=== PATIENT | male | born 1990 | race Caucasian/White ===

== ENCOUNTER 2016-12-21 04:18 | Emergency (ER) | payer OTHER ==
--- NOTE | 2016-12-21 05:50 | REPUSA ---
CLINICAL HISTORY: Trauma. TECHNIQUE: Multiple axial images were obtained through the cervical spine. Images were also reconstru cted in coronal and sagittal planes. The study was performed without IV contrast. COMMENTS: There is no fracture or spondylolisthesis visualized. The paraspinal soft tissues are unremarkable. T here are no lytic or blastic lesions. Straightening of cervical lordosis is seen, suggesting muscular spasm. There is evidence of minimal m ultilevel disk disease, demonstrated by minimal osteophytosis and endplate sclerosis. No significant disk herniation is noted at any level. Canal and foramina remain patent. IMPRESSION: 1. No fracture or spondylolisthesis. 2. Straightening of cervical lordosis is seen, suggesting muscular spasm. 3. Minimal multilevel spondylosis. Thank you for your kind referral of this patient.
[2016-12-21] MEDS ORDERED: DERMABOND TOPICAL SKIN ADHESIVE As Ordered ONE (06:01)
--- NOTE | 2016-12-21 06:40 | EDDOCDS ---
Physician Documentation [facility] Name: Heriberto Wells Age: 26 yrs Sex: Male : 1990 Arrival Date: 12/21/2016 Time: 04:18 Bed 8 Private MD: Disposition: 12/21/16 06:11 Discharged to Home/Self Care. Impression: Alcohol abuse with intoxication, Abrasion of other part of head, Laceration without foreign body of unspecified part of head. - Condition is Stable. - Medication Reconciliation, Local Pharmacy Hours form. - Follow up: Lexus Mak [facility]; When: Call to arrange an appointment; Reason: Recheck today's complaints. - Problem is new. - Symptoms have improved. Historical: - Allergies: No known drug Allergies; - Home Meds: 1. none - PMHx: none; - PSHx: Wisom teeth extractions; - Social history: Smoking status: Patient uses tobacco products, light tobacco smoker. No barriers to communication noted, The patient speaks fluent Belizean, Speaks appropriately for age. - Family history: Not pertinent. - : The pt / caregiver states he / she is not on anticoagulants. Home medication list is obtained from the patient. - Exposure Risk Screening:: None identified. Vital Signs: 12/21 04:32 BP 136 / 93; Pulse 95; Resp 20; Temp 97.3(O); Pulse Ox 97% on R/A; Weight 83.91 kg / jmv 184.99 lbs (R); Height 6 ft. 2 in. (187.96 cm) (R); Pain 6/10; 06:36 BP 123 / 58; Pulse 89; Resp 18; Pulse Ox 100% on R/A; Pain 3/10; tm5 04:32 Body Mass Index 23.75 (83.91 kg, 187.96 cm) jmv Procedures: 06:09 Laceration repair:. cs11 Laceration: 06:09 Wound Repair of 1.0cm ( 0.4in ) full thickness laceration to neck and face. Irregularly cs11 shaped.. Distal neuro/vascular/tendon intact. Wound prep: Moderate cleansing with hibiclenz by provider. Skin closed with thin layer Dermabond using Running sutures. Patient tolerated well. MDM: 04:28 CT Head Without Contrast Ordered. EDMS 04:28 CT Spine,Cervical W/o Contrast Ordered. EDMS 06:03 Dermabond to bedside ordered. tm5 06:27 Financial registration complete. hs2 06:29 [facility] Payment Agreement was scanned into [employer] and attached to record. hs2 Signatures: Dispatcher [employer] EDMS Carisa Esteves, RN RN kmg1 Elton Eubanks, DO cs11 Teresa Kaur, Reg Reg hs2 Alysia Edmond RN RN tm5 The chart was reviewed and I authenticate all verbal orders and agree with the evaluation and treatment provided.Attachments: 06:29 [facility] Payment Agreement hs2 MTDD
--- NOTE | 2016-12-21 06:40 | EDDOCDS ---
Nurse's Notes [facility] Name: Heriberto Wells Age: 26 yrs Sex: Male : 1990 Arrival Date: 12/21/2016 Time: 04:18 Bed 8 Private MD: Diagnosis: Alcohol abuse with intoxication;Abrasion of other part of head;Laceration without foreign body of unspecified part of head Presentation: 12/21 04:27 Presenting complaint: Patient states: Was drinking and when leaving the bar fell off kmg1 the curb lading primarily on his face and head. Witnesses report +LOC. Also injured left wrist and skinned left knee. Mental Health Triage Level: Level 1- Pt displays no suicidal or homicidal ideations and does not appear to be a danger to self or others. Suicide/Homicide risk assessment- the patient denies having any suicidal and/or homicidal ideations and does not present with any other emotional, behavioral or mental health complaints. Status: The patient is an active duty public service representative. Transition of care: patient was not received from another setting of care. 04:27 Acuity: HERVE Level 3 km 04:27 Method Of Arrival: Walkin/Carried/Asstd km 06:38 Adult Sepsis Screening: The patient does not have new or worsening altered mentation. tm5 Patient's respiratory rate is less than 22. Systolic blood pressure is greater than 100. Patient has a qSOFA score of 0- Negative Sepsis Screen. Triage Assessment: 04:32 General: Appears in no apparent distress, comfortable, Behavior is cooperative. Pain: kmg1 Location: right church, right zygomatic area, right cheek, right mandible, dorsal aspect of left wrist and palmar aspect of left wrist Pain currently is 6 out of 10 on a pain scale. Pt Declines HIV testing. Musculoskeletal: Circulation, motion, and sensation intact Capillary refill < 3 seconds. Injury Description: Abrasion sustained to right church, right zygomatic area, right cheek, right mandible and right knee pt fell from standing Laceration sustained to right mandible. Historical: - Allergies: No known drug Allergies; - Home Meds: 1. none - PMHx: none; - PSHx: Wisom teeth extractions; - Social history: Smoking status: Patient uses tobacco products, light tobacco smoker. No barriers to communication noted, The patient speaks fluent Guyanese, Speaks appropriately for age. - Family history: Not pertinent. - : The pt / caregiver states he / she is not on anticoagulants. Home medication list is obtained from the patient. - Exposure Risk Screening:: None identified. Screenin:34 Screening information is obtained from the patient. Fall risk: At risk due to gait tm5 disturbance. Assistance ADL's: requires no assistance with activities of daily living. Abuse/DV Screen: The patient / caregiver reports he/she is: not in a situation that causes fear, pain or injury. Nutritional screening: No deficits noted. Advance Directives: There is no active DNR order. home support is adequate. Assessment: 04:37 General: Appears in no apparent distress, Behavior is appropriate for age, cooperative. tm5 Pain: Location: right temporal area, right zygomatic area and face Pain currently is 6 out of 10 on a pain scale. Quality of pain is described as throbbing. Neurological: Level of Consciousness is awake, alert, Oriented to person, place, time, Student Services Rep are equal bilaterally Moves all extremities. Full function Gait is steady, Speech is normal, Facial symmetry appears normal, Facial symmetry: tongue is midline, Pupils are PERRLA. Respiratory: No deficits noted. GI: No deficits noted. : No deficits noted. Derm: Skin is pink, warm & dry. Injury Description: Abrasion sustained to face is no active bleeding noted pt fell. 06:36 Reassessment: Patient appears in no apparent distress at this time. Patient states tm5 feeling better. Patient states symptoms have improved. Vital Signs: 04:32 BP 136 / 93; Pulse 95; Resp 20; Temp 97.3(O); Pulse Ox 97% on R/A; Weight 83.91 kg (R); jmv Height 6 ft. 2 in. (187.96 cm) (R); Pain 6/10; 06:36 BP 123 / 58; Pulse 89; Resp 18; Pulse Ox 100% on R/A; Pain 3/10; tm5 04:32 Body Mass Index 23.75 (83.91 kg, 187.96 cm) [facility] Vitals: 04:32 Log In Time: December 21, 2016 at 04:20. [facility] ED Course: 04:19 Patient visited by Teresa Kaur, Reg. hs2 04:19 Patient moved to Waiting hs2 04:23 Elton Eubanks DO is Attending Physician. cs11 04:23 Patient visited by Elton Eubanks DO. cs11 04:23 Patient moved to 8 sls1 04:31 Triage Initiated kmg1 04:33 Patient visited by Todd Bishop PCA. jmv 04:[address] Scan. Awaiting ED physician evaluation. tm5 04:37 The patient / caregiver is instructed regarding the plan of care and ED course. tm5 04:51 Patient visited by Alysia Edmond RN. tm5 04:[address] tm5 06:03 Patient visited by Alysia Edmond RN. tm5 06:06 CT Head Without Contrast Returned. EDMS 06:06 CT Spine,Cervical W/o Contrast Returned. EDMS 06:10 Lexus Mak [facility] is Referral Physician. cs11 06:29 [facility] Payment Agreement was scanned into [employer] and attached to record. hs2 06:36 Patient visited by Alysia Edmond RN. tm5 06:36 No IV's were initiated during this patient's visit. No procedures done that require tm5 assistance. Order Results: Radiology Order: CT Head Without Contrast Test: CT Head Without Contrast REASON FOR EXAMINATION: Trauma; ; CLINICAL HISTORY: Head trauma.; TECHNIQUE: Multiple axial brain CT scan sections were obtained from base to vertex without contrast a; dministration.; COMMENTS:; There is no evidence of skull fracture.; The study shows normal configuration of sella turcica. There are no intra or extra-axial collections.; There is no mass effect or midline shift. There is no evidence of hematoma formation. No hydrocephal; us is present. No abnormal calcifications are noted.; No significant abnormalities are seen either in the posterior fossa or supratentorial compartment.; The sinuses and mastoid air cells are patent.; IMPRESSION:; No evidence of acute intracranial pathology. No intracranial hemorrhage or skull fracture.; Thank you for your kind referral of this patient.; ; Radiology Order: CT Spine,Cervical W/o Contrast Test: CT Spine,Cervical W/o Contrast REASON FOR EXAMINATION: Trauma; ; CLINICAL HISTORY: Trauma.; TECHNIQUE: Multiple axial images were obtained through the cervical spine. Images were also reconstru; cted in coronal and sagittal planes. The study was performed without IV contrast.; COMMENTS:; There is no fracture or spondylolisthesis visualized. The paraspinal soft tissues are unremarkable. T; here are no lytic or blastic lesions.; Straightening of cervical lordosis is seen, suggesting muscular spasm. There is evidence of minimal m; ultilevel disk disease, demonstrated by minimal osteophytosis and endplate sclerosis.; No significant disk herniation is noted at any level. Canal and foramina remain patent.; IMPRESSION:; 1. No fracture or spondylolisthesis.; 2. Straightening of cervical lordosis is seen, suggesting muscular spasm.; 3. Minimal multilevel spondylosis.; Thank you for your kind referral of this patient.; ; Outcome: 06:11 Discharge ordered by Provider. cs11 06:36 Discharge Assessment: Patient awake, alert and oriented x 3. No cognitive and/or tm5 functional deficits noted. Patient verbalized understanding of disposition instructions. patient administered narcotics - no. The following High Risk Discharge criteria are identified: None. Discharged to home ambulatory, with friend. Condition: good Condition: stable Condition: improved. Discharge instructions given to patient, Instructed on discharge instructions, follow up and referral plans. Demonstrated understanding of instructions, Pt was receptive of discharge instructions/ teaching. CT Study completed. Property :Personal belongings accompany Pt. 06:38 Patient left the ED. tm5 Signatures: Dispatcher [employer] EDMS Carisa Esteves, RN RN kmg1 Lacey Martell RN RN sls1 Elton Eubanks DO DO cs11 Teresa Kaur, Reg Reg hs2 Todd Bishop, MOTOCROSS RACER MOTOCROSS RACER Alysia Vasquez RN RN tm5 MTDD
--- NOTE | 2016-12-23 07:39 | EDDOCDS ---
Nurse's Notes [facility] Name: Heriberto Wells Age: 26 yrs Sex: Male : 1990 Arrival Date: 12/21/2016 Time: 04:18 Bed 8 Private MD: Diagnosis: Alcohol abuse with intoxication;Abrasion of other part of head;Laceration without foreign body of unspecified part of head Presentation: 12/21 04:27 Presenting complaint: Patient states: Was drinking and when leaving the bar fell off kmg1 the curb lading primarily on his face and head. Witnesses report +LOC. Also injured left wrist and skinned left knee. Mental Health Triage Level: Level 1- Pt displays no suicidal or homicidal ideations and does not appear to be a danger to self or others. Suicide/Homicide risk assessment- the patient denies having any suicidal and/or homicidal ideations and does not present with any other emotional, behavioral or mental health complaints. Status: The patient is an active duty hvac residential service technician. Transition of care: patient was not received from another setting of care. 04:27 Acuity: HERVE Level 3 km 04:27 Method Of Arrival: Walkin/Carried/Asstd km 06:38 Adult Sepsis Screening: The patient does not have new or worsening altered mentation. tm5 Patient's respiratory rate is less than 22. Systolic blood pressure is greater than 100. Patient has a qSOFA score of 0- Negative Sepsis Screen. Triage Assessment: 04:32 General: Appears in no apparent distress, comfortable, Behavior is cooperative. Pain: kmg1 Location: right scientologist, right zygomatic area, right cheek, right mandible, dorsal aspect of left wrist and palmar aspect of left wrist Pain currently is 6 out of 10 on a pain scale. Pt Declines HIV testing. Musculoskeletal: Circulation, motion, and sensation intact Capillary refill < 3 seconds. Injury Description: Abrasion sustained to right scientologist, right zygomatic area, right cheek, right mandible and right knee pt fell from standing Laceration sustained to right mandible. Historical: - Allergies: No known drug Allergies; - Home Meds: 1. none - PMHx: none; - PSHx: Wisom teeth extractions; - Social history: Smoking status: Patient uses tobacco products, light tobacco smoker. No barriers to communication noted, The patient speaks fluent Ecuadorean, Speaks appropriately for age. - Family history: Not pertinent. - : The pt / caregiver states he / she is not on anticoagulants. Home medication list is obtained from the patient. - Exposure Risk Screening:: None identified. Screenin:34 Screening information is obtained from the patient. Fall risk: At risk due to gait tm5 disturbance. Assistance ADL's: requires no assistance with activities of daily living. Abuse/DV Screen: The patient / caregiver reports he/she is: not in a situation that causes fear, pain or injury. Nutritional screening: No deficits noted. Advance Directives: There is no active DNR order. home support is adequate. Assessment: 04:37 General: Appears in no apparent distress, Behavior is appropriate for age, cooperative. tm5 Pain: Location: right temporal area, right zygomatic area and face Pain currently is 6 out of 10 on a pain scale. Quality of pain is described as throbbing. Neurological: Level of Consciousness is awake, alert, Oriented to person, place, time, Client Service Coordinator are equal bilaterally Moves all extremities. Full function Gait is steady, Speech is normal, Facial symmetry appears normal, Facial symmetry: tongue is midline, Pupils are PERRLA. Respiratory: No deficits noted. GI: No deficits noted. : No deficits noted. Derm: Skin is pink, warm & dry. Injury Description: Abrasion sustained to face is no active bleeding noted pt fell. 06:36 Reassessment: Patient appears in no apparent distress at this time. Patient states tm5 feeling better. Patient states symptoms have improved. Vital Signs: 04:32 BP 136 / 93; Pulse 95; Resp 20; Temp 97.3(O); Pulse Ox 97% on R/A; Weight 83.91 kg (R); jmv Height 6 ft. 2 in. (187.96 cm) (R); Pain 6/10; 06:36 BP 123 / 58; Pulse 89; Resp 18; Pulse Ox 100% on R/A; Pain 3/10; tm5 04:32 Body Mass Index 23.75 (83.91 kg, 187.96 cm) [facility] Vitals: 04:32 Log In Time: December 21, 2016 at 04:20. [facility] [place] ED Course: 04:19 Patient visited by Teresa Kaur, Reg. hs2 04:19 Patient moved to Waiting hs2 04:23 Elton Eubanks DO is Attending Physician. cs11 04:23 Patient visited by Elton Eubanks DO. cs11 04:23 Patient moved to 8 sls1 04:31 Triage Initiated kmg1 04:33 Patient visited by Todd Bishop PCA. jmv 04:[address] Scan. Awaiting ED physician evaluation. tm5 04:37 The patient / caregiver is instructed regarding the plan of care and ED course. tm5 04:51 Patient visited by Alysia Edmond RN. tm5 04:[address] tm5 06:03 Patient visited by Alysia Edmond RN. tm5 06:06 CT Head Without Contrast Returned. EDMS 06:06 CT Spine,Cervical W/o Contrast Returned. EDMS 06:10 Lexus aM[facility] is Referral Physician. cs11 06:29 [facility] Payment Agreement was scanned into [employer] and attached to record. hs2 06:36 Patient visited by Alysia Edmond RN. tm5 06:36 No IV's were initiated during this patient's visit. No procedures done that require 5 assistance. 08:26 T-Sheet-- Draft Copy was scanned into [employer] and attached to record. [facility] Order Results: Radiology Order: CT Head Without Contrast Test: CT Head Without Contrast REASON FOR EXAMINATION: Trauma; ; CLINICAL HISTORY: Head trauma.; TECHNIQUE: Multiple axial brain CT scan sections were obtained from base to vertex without contrast a; dministration.; COMMENTS:; There is no evidence of skull fracture.; The study shows normal configuration of sella turcica. There are no intra or extra-axial collections.; There is no mass effect or midline shift. There is no evidence of hematoma formation. No hydrocephal; us is present. No abnormal calcifications are noted.; No significant abnormalities are seen either in the posterior fossa or supratentorial compartment.; The sinuses and mastoid air cells are patent.; IMPRESSION:; No evidence of acute intracranial pathology. No intracranial hemorrhage or skull fracture.; Thank you for your kind referral of this patient.; ; Radiology Order: CT Spine,Cervical W/o Contrast Test: CT Spine,Cervical W/o Contrast REASON FOR EXAMINATION: Trauma; ; CLINICAL HISTORY: Trauma.; TECHNIQUE: Multiple axial images were obtained through the cervical spine. Images were also reconstru; cted in coronal and sagittal planes. The study was performed without IV contrast.; COMMENTS:; There is no fracture or spondylolisthesis visualized. The paraspinal soft tissues are unremarkable. T; here are no lytic or blastic lesions.; Straightening of cervical lordosis is seen, suggesting muscular spasm. There is evidence of minimal m; ultilevel disk disease, demonstrated by minimal osteophytosis and endplate sclerosis.; No significant disk herniation is noted at any level. Canal and foramina remain patent.; IMPRESSION:; 1. No fracture or spondylolisthesis.; 2. Straightening of cervical lordosis is seen, suggesting muscular spasm.; 3. Minimal multilevel spondylosis.; Thank you for your kind referral of this patient.; ; Outcome: 06:11 Discharge ordered by Provider. cs11 06:36 Discharge Assessment: Patient awake, alert and oriented x 3. No cognitive and/or tm5 functional deficits noted. Patient verbalized understanding of disposition instructions. patient administered narcotics - no. The following High Risk Discharge criteria are identified: None. Discharged to home ambulatory, with friend. Condition: good Condition: stable Condition: improved. Discharge instructions given to patient, Instructed on discharge instructions, follow up and referral plans. Demonstrated understanding of instructions, Pt was receptive of discharge instructions/ teaching. CT Study completed. Property :Personal belongings accompany Pt. 06:38 Patient left the ED. tm5 Signatures: Dispatcher [employer] EDMS Carisa Esteves, RN RN kmg1 Lacey Martell RN RN sls1 Elton Eubanks DO DO cs11 Teresa Kaur, Reg Reg hs2 Hilda Gibbons Jose, KATIE DISTRICT SUPERVISOR Alysia Vasquez,RN RN tm5 Chart Complete MTDD
--- NOTE | 2016-12-23 07:39 | EDDOCDS ---
Physician Documentation [facility] Name: Heriberto Wells Age: 26 yrs Sex: Male : 1990 Arrival Date: 12/21/2016 Time: 04:18 Bed 8 Private MD: Disposition: 12/21/16 06:11 Discharged to Home/Self Care. Impression: Alcohol abuse with intoxication, Abrasion of other part of head, Laceration without foreign body of unspecified part of head. - Condition is Stable. - Medication Reconciliation, Local Pharmacy Hours form. - Follow up: Lexus Mak [facility]; When: Call to arrange an appointment; Reason: Recheck today's complaints. - Problem is new. - Symptoms have improved. Historical: - Allergies: No known drug Allergies; - Home Meds: 1. none - PMHx: none; - PSHx: Wisom teeth extractions; - Social history: Smoking status: Patient uses tobacco products, light tobacco smoker. No barriers to communication noted, The patient speaks fluent Mosotho, Speaks appropriately for age. - Family history: Not pertinent. - : The pt / caregiver states he / she is not on anticoagulants. Home medication list is obtained from the patient. - Exposure Risk Screening:: None identified. Vital Signs: 12/21 04:32 BP 136 / 93; Pulse 95; Resp 20; Temp 97.3(O); Pulse Ox 97% on R/A; Weight 83.91 kg / jmv 184.99 lbs (R); Height 6 ft. 2 in. (187.96 cm) (R); Pain 6/10; 06:36 BP 123 / 58; Pulse 89; Resp 18; Pulse Ox 100% on R/A; Pain 3/10; tm5 04:32 Body Mass Index 23.75 (83.91 kg, 187.96 cm) jmv Procedures: 06:09 Laceration repair:. cs11 Laceration: 06:09 Wound Repair of 1.0cm ( 0.4in ) full thickness laceration to neck and face. Irregularly cs11 shaped.. Distal neuro/vascular/tendon intact. Wound prep: Moderate cleansing with hibiclenz by provider. Skin closed with thin layer Dermabond using Running sutures. Patient tolerated well. MDM: 04:28 CT Head Without Contrast Ordered. EDMS 04:28 CT Spine,Cervical W/o Contrast Ordered. EDMS 06:03 Dermabond to bedside ordered. tm5 06:27 Financial registration complete. hs2 06:29 [facility] Payment Agreement was scanned into [employer] and attached to record. hs2 08:26 T-Sheet-- Draft Copy was scanned into [employer] and attached to record. [facility] Signatures: Dispatcher [employer] EDIN Carisa Esteves, RN RN kmg1 Elton Eubanks, DO cs11 Teresa Kaur, Reg Reg hs2 Hilda Gibbons Tonya, RN RN tm5 The chart was reviewed and I authenticate all verbal orders and agree with the evaluation and treatment provided.Attachments: 06:29 [facility] Payment Agreement hs2 08:26 T-Sheet-- Draft Copy [facility] Chart Complete MTDD
--- NOTE | 2016-12-23 07:39 | EDDOCDS ---
Physician Documentation [facility] Name: Heriberto Wells Age: 26 yrs Sex: Male : 1990 Arrival Date: 12/21/2016 Time: 04:18 Bed 8 Private MD: Disposition: 12/21/16 06:11 Discharged to Home/Self Care. Impression: Alcohol abuse with intoxication, Abrasion of other part of head, Laceration without foreign body of unspecified part of head. - Condition is Stable. - Medication Reconciliation, Local Pharmacy Hours form. - Follow up: Lexus Mak [facility]; When: Call to arrange an appointment; Reason: Recheck today's complaints. - Problem is new. - Symptoms have improved. Historical: - Allergies: No known drug Allergies; - Home Meds: 1. none - PMHx: none; - PSHx: Wisom teeth extractions; - Social history: Smoking status: Patient uses tobacco products, light tobacco smoker. No barriers to communication noted, The patient speaks fluent Maltese, Speaks appropriately for age. - Family history: Not pertinent. - : The pt / caregiver states he / she is not on anticoagulants. Home medication list is obtained from the patient. - Exposure Risk Screening:: None identified. Vital Signs: 12/21 04:32 BP 136 / 93; Pulse 95; Resp 20; Temp 97.3(O); Pulse Ox 97% on R/A; Weight 83.91 kg / jmv 184.99 lbs (R); Height 6 ft. 2 in. (187.96 cm) (R); Pain 6/10; 06:36 BP 123 / 58; Pulse 89; Resp 18; Pulse Ox 100% on R/A; Pain 3/10; tm5 04:32 Body Mass Index 23.75 (83.91 kg, 187.96 cm) jmv Procedures: 06:09 Laceration repair:. cs11 Laceration: 06:09 Wound Repair of 1.0cm ( 0.4in ) full thickness laceration to neck and face. Irregularly cs11 shaped.. Distal neuro/vascular/tendon intact. Wound prep: Moderate cleansing with hibiclenz by provider. Skin closed with thin layer Dermabond using Running sutures. Patient tolerated well. MDM: 04:28 CT Head Without Contrast Ordered. EDMS 04:28 CT Spine,Cervical W/o Contrast Ordered. EDMS 06:03 Dermabond to bedside ordered. tm5 06:27 Financial registration complete. hs2 06:29 [facility] Payment Agreement was scanned into [employer] and attached to record. hs2 08:26 T-Sheet-- Draft Copy was scanned into [employer] and attached to record. [facility] Signatures: Dispatcher [employer] EDAZ Carisa Esteves, RN RN [id number] Elton Eubanks, DO cs11 Teresa Kaur, Reg Reg hs2 Hilda Gibbons Tonya, RN RN tm5 The chart was reviewed and I authenticate all verbal orders and agree with the evaluation and treatment provided.Attachments: 06:29 [facility] Payment Agreement hs2 08:26 T-Sheet-- Draft Copy [facility] Chart Complete MTDD
== END 2016-12-21 06:38 | disposition home or self-care (01) ==
LOC: M ED 04:18
DX: F10.129 Alcohol abuse with intoxication, unspecified (principal); S01.81XA Laceration without foreign body of other part of head, initial encounter; W19.XXXA Unspecified fall, initial encounter; Y92.410 Unspecified street and highway as the place of occurrence of the external cause; Y93.89 Activity, other specified; Y99.8 Other external cause status; F17.200 Nicotine dependence, unspecified, uncomplicated

== ENCOUNTER 2021-09-04 10:49 | Emergency (ER) | payer OTHER ==
[~2021-09-04] VITALS: Ht 190.5 cm; Wt 84.1 kg
[2021-09-04 10:49] VITALS: BP 124/69
--- OUTSIDE RECORDS SUMMARY | 2021-09-04 10:54 | CCD ---
Author Author [facility] Organization [facility] Address Unknown Phone Unavailable Care Team Providers Care Park Attendant Name Role Phone XOCHITL LOVE MD Unavailable Unavailable XOCHITL LOVE MD Unavailable Unavailable XOCHITL LOVE MD Unavailable Unavailable XOCHITL LOVE MD Unavailable Unavailable XOCHITL LOVE MD Unavailable Unavailable XOCHITL LOVE MD Unavailable Unavailable XOCHITL LOVE MD Unavailable Unavailable XOCHITL LOVE MD Unavailable Unavailable XOCHITL LOVE MD Unavailable Unavailable XOCHITL LOVE MD Unavailable Unavailable XOCHITL LOVE MD Unavailable Unavailable XOCHITL LOVE MD Unavailable Unavailable XOCHITL LOVE MD Unavailable Unavailable XOCHITL LOVE MD Unavailable Unavailable XOCHITL LOVE MD Unavailable Unavailable Joesph HERNANDEZ MD Unavailable Unavailable Joesph HERNANDEZ MD Unavailable Unavailable Joesph HERNANDEZ MD Unavailable Unavailable Joesph HERNANDEZ MD Unavailable Unavailable Joesph HERNANDEZ MD Unavailable Unavailable Joesph HERNANDEZ MD Unavailable Unavailable Joesph HERNANDEZ MD Unavailable Unavailable Joesph HERNANDEZ MD Unavailable Unavailable Joesph HERNANDEZ MD Unavailable Unavailable Joesph HERNANDEZ MD Unavailable Unavailable Joesph HERNANDEZ MD Unavailable Unavailable Joesph HERNANDEZ MD Unavailable Unavailable Joesph HERNANDEZ MD Unavailable Unavailable Joesph HERNANDEZ MD Unavailable Unavailable Joesph HERNANDEZ MD Unavailable Unavailable Joesph HRENANDEZ MD Unavailable Unavailable Joesph HERNANDEZ MD Unavailable Unavailable Joesph HERNANDEZ MD Unavailable Unavailable Joesph HERNANDEZ MD Unavailable Unavailable Joesph HERNANDEZ MD Unavailable Unavailable Joesph HERNANDEZ MD Unavailable Unavailable Joesph HERNANDEZ MD Unavailable Unavailable Joesph HERNANDEZ MD Unavailable Unavailable Joesph HERANNDEZ MD Unavailable Unavailable Joesph HERNANDEZ MD Unavailable Unavailable Joesph HERNANDEZ MD Unavailable Unavailable Joesph HERNANDEZ MD Unavailable Unavailable Joesph HERNANDEZ MD Unavailable Unavailable Joesph HERNANDEZ MD Unavailable Unavailable Joesph HERNANDEZ MD Unavailable Unavailable Joesph HERNANDEZ MD Unavailable Unavailable Joesph HERNANDEZ MD Unavailable Unavailable Joesph HERNANDEZ MD Unavailable Unavailable Joesph HERNANDEZ MD Unavailable Unavailable Joesph HERNANDEZ MD Unavailable Unavailable Joesph HERNANDEZ MD Unavailable Unavailable Joesph HERNANDEZ MD Unavailable Unavailable Joesph HERNANDEZ MD Unavailable Unavailable Joesph HERNANDEZ MD Unavailable Unavailable Joesph HERNANDEZ MD Unavailable Unavailable Joesph HERNANDEZ MD Unavailable Unavailable Joesph HERNANDEZ MD Unavailable Unavailable Joesph HERNANDEZ MD Unavailable Unavailable Joesph HERNANDEZ MD Unavailable Unavailable Joesph HERNANDEZ MD Unavailable Unavailable Joesph HERNANDEZ MD Unavailable Unavailable Joesph HERNANDEZ MD Unavailable Unavailable Joesph HERNANDEZ MD Unavailable Unavailable Joesph HERNANDEZ MD Unavailable Unavailable Joesph HERNANDEZ MD Unavailable Unavailable Joesph HERNANDEZ MD Unavailable Unavailable Joesph HERNANDEZ MD Unavailable Unavailable Joesph HERNANDEZ MD Unavailable Unavailable Joesph HERNANDEZ MD Unavailable Unavailable Joesph HERNANDEZ MD Unavailable Unavailable Joesph HERNANDEZ MD Unavailable Unavailable Joesph HERNANDEZ MD Unavailable Unavailable Joesph HERNANDEZ MD Unavailable Unavailable Joesph HERNANDEZ MD Unavailable Unavailable Joesph HERNANDEZ MD Unavailable Unavailable Joesph HERNANDEZ MD Unavailable Unavailable Joesph HERNANDEZ MD Unavailable Unavailable Joesph HERNANDEZ MD Unavailable Unavailable Joesph HERNANDEZ MD Unavailable Unavailable Joesph HERNANDEZ MD Unavailable Unavailable Joesph HERNANDEZ MD Unavailable Unavailable Joesph HERNANDEZ MD Unavailable Unavailable Joesph HERNANDEZ MD Unavailable Unavailable Joesph HERNANDEZ MD Unavailable Unavailable Joesph HERNANDEZ MD Unavailable Unavailable Joesph HERNANDEZ MD Unavailable Unavailable Joesph HERNANDEZ MD Unavailable Unavailable Joesph HERNANDEZ MD Unavailable Unavailable Joesph HERNANDEZ MD Unavailable Unavailable Joesph HERNANDEZ MD Unavailable Unavailable Joesph HERNANDEZ MD Unavailable Unavailable Joesph HERNANDEZ MD Unavailable Unavailable Joesph HERNANDEZ MD Unavailable Unavailable Joesph HERNANDEZ MD Unavailable Unavailable Re-disclosure Warning The records that you are about to access may contain information from federally-assisted alcohol or drug abuse programs. If such information is present, then the following federally mandated warning applies: This information has been disclosed to you from records protected by federal confidentiality rules (42 CFR part 2). The federal rules prohibit you from making any further disclosure of this information unless further disclosure is expressly permitted by the written consent of the person to whom it pertains or as otherwise permitted by 42 CFR part 2. A general authorization for the release of medical or other information is NOT sufficient for this purpose. The Federal rules restrict any use of the information to criminally investigate or prosecute any alcohol or drug abuse patient.The records that you are about to access may contain highly sensitive health information, the redisclosure of which is protected by Article 27-F of the [facility] Public Health law. If you continue you may have access to information: Regarding HIV / AIDS; Provided by facilities licensed or operated by the [facility] Office of Mental Health; or Provided by the [facility] Office for People With Developmental Disabilities. If such information is present, then the following [facility] mandated warning applies: This information has been disclosed to you from confidential records which are protected by state law. State law prohibits you from making any further disclosure of this information without the specific written consent of the person to whom it pertains, or as otherwise permitted by law. Any unauthorized further disclosure in violation of state law may result in a fine or correction sentence or both. A general authorization for the release of medical or other information is NOT sufficient authorization for further disc losure. Allergies and Adverse Reactions Type Description Substance Reaction Status Data Source(s ) Propensity to adverse reactions NO KNOWN ALLERGIES NO KNOWN ALLERGIES [facility] Encounters Encounter Providers Location Date Indications Data Source(s ) Outpatient Attender: SCOTT HERNANDEZ MDReferrer: SCOTT LOVE MD [id number] 10/01/2020 12:00:00 AM EST [facility] Outpatient Referrer: SCOTT HERNANDEZ MD 10/01/2020 12:0 0:00 AM EST Displaced fracture of neck of fifth metacarpal bone, left hand, subsequent encounter for fracture with routine healing [facility] Displaced fracture of neck of fifth meta carpal bone, left hand, subsequent encounter for fracture with routine healing Outpatient Referrer: SCOTT HERNANDEZ MD 09/10/2020 12:0 0:00 AM EST Displaced fracture of neck of fifth metacarpal bone, left hand, initial encounter for closed fracture [facility] Displaced fracture of neck of fifth meta carpal bone, left hand, initial encounter for closed fracture Outpatient Attender: SCOTT HERNANDEZ MDReferrer: SCOTT LOVE MD [id number] 09/10/2020 12:00:00 AM [facility] Outpatient Attender: SCOTT HERNANDEZ MD 08/28/2020 12:00:00 A M [facility] Outpatient Attender: SCOTT HERNANDEZ MDReferrer: SCOTT LOVE MD [id number] 08/14/2020 12:00:00 AM EDT Displaced fracture of neck of fifth meta carpal bone, left hand, initial encounter for closed fracture [facility] Displaced fracture of neck of fifth meta carpal bone, left hand, initial encounter for closed fracture Outpatient Referrer: SCOTT HERNANDEZ MD 08/14/2020 12:0 0:00 AM EDT Unspecified injury of left wrist, hand and finger(s), initial encounter [facility] Unspecified injury of left wrist, hand a nd finger(s), initial encounter Medications No Information Insurance Providers Payer name Policy type / Coverage type Policy ID Covered constitution party ID Covered constitution party's relationship to dudley Policy [place] Plan Information U [id number] Self [id number] U [id number] Self [id number] ACT[employer]Y [id number] Problems, Conditions, and Diagnoses Code Display Name Description Problem Type Effective Dates Data Source(s) S62.337D Displaced fracture of neck o f fifth metacarpal bone, left hand, subsequent encounter for fracture with routine healing Displaced fracture of neck of fifth metacarpal bone, left hand, subsequent encounter for fracture with routine healing Diagnosis 08/14/2020 09:47:48 AM EDT [facility] S62.337A Displaced fracture of neck o f fifth metacarpal bone, left hand, initial encounter for closed fracture Displaced fracture of neck of fifth meta carpal bone, left hand, initial encounter for closed fracture Diagnosis 08/14/2020 09:47:48 AM EDT [facility] S69.92XA Unspecified injury of left w rist, hand and finger(s), initial encounter Unspecified injury of left wrist, hand and finger(s), initial encounter Diagnosis 08/14/2020 09:15:25 AM EDT [facility] Surgeries/Procedures No Information Results ID Date Data Source [id number] 10/01/2020 09:40:26 AM EST [facility] Name Value Range Interpretation Code Description Data Arabella rce(s) Supporting Document(s) Progress Note [facility] OVUAXz4yLrKESxTx32/EMKrqZNNau3AkXXklKFa7ZNtxIFIxI4NmVJU4bV3xHMT1USlLWtJiXkNtRxK6 lbm [file] AgICAgICAgICAgICAgICAgICAgICAgICAgICAgICAgICAgICAgICAgICAgICAgICAgICAgICAgDQogIC AgICAgICAgICAgICAgICAgICAgICAgICAgICAgICAg ICAgICAgICAgICAgICAgICAgICAgICAgICAgICAgICAgICAgICAgICAgICAgICAgICAgICAgICAgICAg ICAgICAgDQogICAgICAgICAgICAgICAgICAgICAgICAgICAgICAgICAgICAgICAgICAgICAgICAgICAg ICAgICAgICAgICAgICAgICAgICAgICAgICAgICAgIC AgICAgICAgICAgICAgICAgDQogICAgICAgICAgICAgICAgICAgICAgICAgICAgICAgICAgICAgICAgIC AgICAgICAgICAgICAgICAgICAgICAgICAgICAgICAgICAgICAgICAgICAgICAgICAgICAgICAgICAgDQ ogICAgICAgICAgICAgICAgICAgICAgICAgICAgICAg ICAgICAgICAgICAgICAgICAgICAgICAgICAgICAgICAgICAgICAgICAgICAgICAgICAgICAgICAgICAg ICAgICAgICAgDQogICAgICAgICAgICAgICAgICAgICAgICAgICAgICAgICAgICAgICAgICAgICAgICAg ICAgICAgICAgICAgICAgICAgICAgICAgICAgICAgIC AgICAgICAgICAgICAgICAgICAgDQogICAgICAgICAgICAgICAgICAgICAgICAgICAgICAgICAgICAgIC AgICAgICAgICAgICAgICAgICAgICAgICAgICAgICAgICAgICAgICAgICAgICAgICAgICAgICAgICAgIC AgDQogICAgICAgICAgICAgICAgICAgICAgICAgICAg ICAgICAgICAgICAgICAgICAgICAgICAgICAgICAgICAgICAgICAgICAgICAgICAgICAgICAgICAgICAg ICAgICAgICAgICAgDQogICAgICAgICAgICAgICAgICAgICAgICAgICAgICAgICAgICAgICAgICAgICAg ICAgICAgICAgICAgICAgICAgICAgICAgICAgICAgIC AgICAgICAgICAgICAgICAgICAgICAgDQogICAgICAgICAgICAgICAgICAgICAgICAgICAgICAgICAgIC AgICAgICAgICAgICAgICAgICAgICAgICAgICAgICAgICAgICAgICAgICAgICAgICAgICAgICAgICAgIC NtQNLxIGu2T0phWAFnEQSmBG1iPTa4Ci0+DQoNCmVu NWJ3xaNqxV9KFE0ib1TqGXycUKOvx1ZgNXz3RS3OLUQcOAjlHH0NELtqrv4GELIpXSAorVSHf9mjGgLv ZIH4ZKLkKhvxJJ6PSDNnV3dstcKtASAfDOTBKH6GFvMgM3MblB24NUAGQk9+CPmwicRpZuzOIsS0EKEq j5QrIGm6HG4RSDDnSounz5GvPmUcUPMDODkpGS0YSQ L5BEQtSZZqNi0DKRUzV450yjDyNT2DYc2VGxDzHS1ean7XWzXzUWEuNxyTMrp8TWcqBT5NjGCqQXxCcz 6qxeZivjGAb9VzyvDvwGMLxsneymOYQFmvklmkrTcoRQBzSQUxRLLdKw4wQJNjHUA7PwUuWRHLFM2AAX HkWYUkwONsMKZkVYCHXP0XBUzsPVI1SNQqbrDjbVEs ZLzzRI8YYXAoxdGsJJhnWNCFFZv+Xd4VCP2lr3ReXWdhYOCjYJ9bjm2JQUaJOlHzJ4U9dJZyG0T8RUkg Xi7ECCDdKBAdLMynDAMCTPgiHE7XJX1eslI6MB3WsWKyXKOmVZOvkDDqGPv3R69ztXIoATrtSA7QAHH+ Annie+Hb4MBIEeFRSwHWSmQzOgZFVIRsLkB5JvK3TSf1 BcU3CdWJ77eDrlnpGfXWvaHA4WFM8lRJBrJAWDNR4CwGEpgV7jqgVcCHRaZGCERnMpM07ftLFpCSRnUT A2TMUiXs7LBHHxQ6NjboFbbYtmtfLeXKHaUAUPRE0JVEbhtdDqqQYooVufLI44mJysRP8YGv1VRsElTN 0kgh1RsFXmRf9BASVpNh8BKMMtDKHuPLVsRDJ1IRSs EyKvOOlgKAMdMHHoHGZ6TILqTLCqRT7NTcXaTLYkOGsrRLCbMGCcZQNbae4FTAUmNVQyUTakGnIwDIYr IREgPEbnWKUqNHIkAMY9DTNuALCgDE7QSsLoKWNzGCM7HEVyYDHhQOOgkh6TRYThVIDvArTzEVVxWSQo KDWuBYtkOYEvYQVbKDo0HYKhCBAnUW2DEzSoTWSgUJ RrVtGxFCJmYYDerf5MENTjRLDsOrZ4AQYnQHVyOAMmULfwRRRnXAV6BSF7TZUvZOBhYM8JMkNxKXZoRG S5JPHkPADlGGVlwc8GEISnJKRnOEw0ZdBlNKRfTJEnKFbqGGYuVOV5WPGyTEIhPPQtXW5AAxZdROCuWQ N7HkeoBNZxPOOpfi9OKHIgOKAnIdQ8ZgEyBJFzVSPt RCanKXPhPEH2DOY9VGDgKOHfIM8SZpZjKLIhOFfmBdYqHYUdGYBbff3HKIFqRZXwLiC0XbHhXJXtNCUc WScoZEYqKFU2WTXzMHUuIAMmEX5DYgJiJQVyQYf9YiWjRZMmGXRrvt3DROHuUCGlTYLyRAYaJHYpQAWs YGh9dgHlhOJkNCs9BX4SH9YqypXiFsBPDn3An072MF PoJNBxOo6GB4quCk9cKNJhLXLKZg6FZJd0Hio8YcJlXvJjCUT2MQOnEXuhNoPfQvDwAVUcRyfhJYI+ID evAUH6JySmTwYcLum6PzWyETP6SPRqXPQuBEArSPZgKK9tSQYLFv1+CDditEYeqNrpWUHMEzG0CbH9YR qlFGVTXr6P ID Date Data Source [id number] 10/01/2020 09:27:00 AM [facility] XR HAND 3 OR MORE VIEWS [id number] RESUL TInterpreted by:RIKKI Carringtonlinical history: Left fifth metacarpal neck fractureViews: 4 views left handIndication: Check fracture left handFindings: Patient has an oblique fracture to the neck of the left fifth metacarpal which is in a slightly palmar flexed position. Advanced bone healing is present. Adjacent metacarpals appear uninjured. No acute bony trauma to the phalanges is appreciated.Impression: Isolated fracture left fifth metacarpal neck with slight angular deformity and advanced bone healingThis document has been electronically signed by Scott Hernandez MD on 10/01/2020 9:24 AM Name Value Range Interpretation Code Description Data Arabella rce(s) Supporting Document(s) ID Date Data Source [id number] 09/10/2020 11:56:41 AM [facility] XR HAND 3 OR MORE VIEWS [id number] RESUL TInterpreted by:RIKKI Carringtonlinical history: Left fifth metacarpal neck fractureViews: 4 views left handIndication: Check fracture left handFindings: Patient has an oblique fracture to the neck of the left fifth metacarpal which is in a slightly palmar flexed position. Moderate bone healing is present however the fracture line still is evident on all views. Adjacent metacarpals appear uninjured. No acute bony trauma to the phalanges is appreciated.Impression: Isolated fracture left fifth metacarpal neck with slight angular deformity and moderate bone healingThis document has been electronically signed by Scott Hernandez MD on 09/10/2020 11:54 AM Name Value Range Interpretation Code Description Data Arabella rce(s) Supporting Document(s) ID Date Data Source [id number] 09/10/2020 11:06:36 AM [facility] Name Value Range Interpretation Code Description Data Arabella rce(s) Supporting Document(s) Progress Note [facility] MKNEWv5xMoTNDeWd37/XNCbmJIJgf6MbZOvxHZk0TEjoHKTwB8CqBYC8yR8zUPN3HPvKWzPhTpIbBET3 lbm [file] ICAgICAgICAgICAgICAgICAgICAgICAgICAgICAgICAgICAgICAgICAgICAgICAgICAgICAgICAgICAg ICAgICAgICAgICAgICAgICAgICANCiAgICAgICAgICAgICAgICAgICAgICAgICAgICAgICAgICAgICAg ICAgICAgICAgICAgICAgICAgICAgICAgICAgICAgIC AgICAgICAgICAgICAgICAgICAgICAgICAgICAgICANCiAgICAgICAgICAgICAgICAgICAgICAgICAgIC AgICAgICAgICAgICAgICAgICAgICAgICAgICAgICAgICAgICAgICAgICAgICAgICAgICAgICAgICAgIC AgICAgICAgICAgICANCiAgICAgICAgICAgICAgICAg ICAgICAgICAgICAgICAgICAgICAgICAgICAgICAgICAgICAgICAgICAgICAgICAgICAgICAgICAgICAg ICAgICAgICAgICAgICAgICAgICAgICANCiAgICAgICAgICAgICAgICAgICAgICAgICAgICAgICAgICAg ICAgICAgICAgICAgICAgICAgICAgICAgICAgICAgIC AgICAgICAgICAgICAgICAgICAgICAgICAgICAgICAgICANCiAgICAgICAgICAgICAgICAgICAgICAgIC AgICAgICAgICAgICAgICAgICAgICAgICAgICAgICAgICAgICAgICAgICAgICAgICAgICAgICAgICAgIC AgICAgICAgICAgICAgICANCiAgICAgICAgICAgICAg ICAgICAgICAgICAgICAgICAgICAgICAgICAgICAgICAgICAgICAgICAgICAgICAgICAgICAgICAgICAg ICAgICAgICAgICAgICAgICAgICAgICAgICANCiAgICAgICAgICAgICAgICAgICAgICAgICAgICAgICAg ICAgICAgICAgICAgICAgICAgICAgICAgICAgICAgIC AgICAgICAgICAgICAgICAgICAgICAgICAgICAgICAgICAgICANCiAgICAgICAgICAgICAgICAgICAgIC AgICAgICAgICAgICAgICAgICAgICAgICAgICAgICAgICAgICAgICAgICAgICAgICAgICAgICAgICAgIC AgICAgICAgICAgICAgICAgICANCiAgICAgICAgICAg ICAgICAgICAgICAgICAgICAgICAgICAgICAgICAgICAgICAgICAgICAgICAgICAgICAgICAgICAgICAg ICAgICAgICAgICAgICAgICAgICAgICAgICAgICANCjw/sCNlL9pqcOCorjA2W4kzVe6FNn8VVN4ow4Hr FUErPYwvkxCdCysKQoDsZXIwMwiUBme1BSpuDR7SoX HlY9UyK6McDTbcGL3PRTAuZUNilOStHQPtVLZeItP4UETpEHmjUS5NySCvWEicQYTdWRNmWE5ZCTCzY3 48vlNdEE0QCo1YQwFiMG7rba0JMVooZGLmGdrPFpl4ITkhCK1AxTZosRSyLSGySWVWVsQwA4kax4NvOc EdNEAWGYtkWV0Ni2HpyNXvJQe+Bt6CSH3za8JpKFok KDRsNO7fjo1FEJdBAjJaD5TjoOqaDOAht3hrXDTdZG6nyALkBEO4ZZTujFRxBHtdZYMhjGE0ZJHMEIIl kUTkUN5nHf4sCTPfRGTzRmEaUMRUBG0YKEBqWRWihFHrTYCrQADQMF5XCXdbIOS5MRMnlfXqsKMrFZco YI3UIOSidyGnSHtyNSMAVNk+Qi3WQA8ns0RbGMhwIR BuPG5dss2TXFfAKmZiB5J3cGMbW8U3XPhxYa8LGTIvCENgDWvgECJYJYsrKQ3VVM3hmkN5DD0SgNXeBF YxNRDuyBOpPQa0J72qcNXmODjlQC7IBVK+Annie+Zn7RWTRwIRDePQZjKtPuUQLVWiKwR8RnX5MPx3KjT1 HdBC80hSouzqKbGDrfZP9FMK8gOZDaSPHTLE5TwSWp nF2xkiScMRWjRAYHPmKfZ39fdWEkREPkJUY6ATWcDl7AEQSmW2BgypZfnHvcnxIyMCLlRIRDKI5GBCjy lpRvfGVbeOhgNQ94xNjeUZ0DPy5VOnMpZX1tcr3DqSCyMg2IFEOoWp8GMBQxBWTtPWRzOHD5HSYtJdRj OGcwMVTnPAIlYCK0BIFnZUNqJY7MXaKuBYMtRGxgHB DlUAYbSUSwbk9XZSHzBZNkDTifUQGbNGCiCUHhREwjAQCxUARgKSR2QSSnUTBlWK7RDcSfAFUxIEKxKc dhGYUdGVQxkt2ZKTOhPAFkQjJeAYXrZYTgPRBpCWwfGAUqFSZxGZlbFOJcURIjRP7VEzEaAMBhXQAyWE VbZRAyMZFttu1QSMNpRAKeElS5BpNqUTGjJTJkQYuh CRYuBBR9RKV3XTByNVHfKL1VEiJkGUIbOCL9DnPcJAKhLVYebu1DFPKtEQFcINygQyVoPPZtEJZcHYff GMUbILZ8HfE0KUDwVOFiNX3QVoUjCXBqEGD5NGNjTPEoJRFrfk9RQNRnMYJoZhj1TkRsXOElITJfLSkq FVRgZRJ5UOVaBTVyXECfHC0DVcQpNASrLLalBgevZE YwKRUpag0FEIGjBBNcThL6KRQqMWNhCGEmVUevXVBlUDS1JOJ9CEThSPTyEK8RCuYhGMBpIGxeDIbvFQ EkTORvgr4EQQXvIWGxAZJlODUqIUHbCRJkTXy2hkIcbSOzYHo2BH4RT7OxevLnDxAHWm3Wy937UBJxKZ XuCi1TE2tsOk3sNRCfWLVUHx1YTJr9RJBdQDQoEux9 TTO5UDYmCgOhIAK5SFXeDgI6UVQ6SYF+FWf1Q6YjGMViMVo8AGB1HmPuHtW8MRWiCPR3BEXyHQLtMr0y XSANCj4+YHyulZSlgIqiBGQETpU1QQxaPTnsLCGIUg2O ID Date Data Source [id number] 08/14/2020 09:51:35 AM EDT [facility] XR HAND 3 OR MORE VIEWS [id number] RESUL TInterpreted by:RIKKI Carringtonlinical history: Left fifth metacarpal neck fractureViews: 4 views left handIndication: Check fracture left handFindings: Patient has an oblique fracture to the neck of the left fifth metacarpal which is in a slightly palmar flexed position. Early bone healing is present however the fracture line still is evident on all views. Adjacent metacarpals appear uninjured. No acute bony trauma to the phalanges is appreciated.Impression: Isolated fracture left fifth metacarpal neck with slight angular deformity and early bone healingThis document has been electronically signed by Scott Hernandez MD on 08/14/2020 9:49 AM Name Value Range Interpretation Code Description Data Arabella rce(s) Supporting Document(s) ID Date Data Source [id number] 08/14/2020 09:48:26 AM EDT [facility] Name Value Range Interpretation Code Description Data Arabella rce(s) Supporting Document(s) Progress Note [facility] IAYNAt9cCfBFStGa37/OGNlbGQWwp9IlJHmtLTj8MRyfKJRxO5EaDCT5uQ7vDIM9GLjBGkYkEtPhWSDl m [file] R9TlVfTExgMghhMQFqZKM1BAYhGnSzWtQoOS5JYr3DMcZ2JQN8iOSpRx4PUfXyOnOXXfRmFW3QTKf= Procedure Social History Code Duration Value Status Description Data Source(s ) Alcohol intake 10/01/2020 12:00:00 AM EST Current drinker of al cohol (finding) completed Current drinker of alcohol (finding) [facility] Tobacco use and exposure 10/01/2020 12:00:00 AM EST Never used co mpleted Never used [facility] Smoking 10/01/2020 12:00:00 AM EST Current every day smoker co mpleted Current every day smoker [facility] Alcohol intake 09/10/2020 12:00:00 AM EST Current drinker of al cohol (finding) completed Current drinker of alcohol (finding) [facility] Alcohol intake 08/14/2020 12:00:00 AM EDT Current drinker of al cohol (finding) completed Current drinker of alcohol (finding) [facility] Vital Signs ID Date Data Source [id number] 08/20/2020 02:31:15 PM EDT [facility] Name Value Range Interpretation Code Description Data Source(s) WEIGHT RECORDED [address] [facility] Body height Measured 75 in 75 in [facility]
--- OUTSIDE RECORDS SUMMARY | 2021-09-04 13:50 | CCD ---
Author Author [facility] Organization [facility] Address Unknown Phone Unavailable Care Team Providers Care Apple Packing Header Name Role Phone XOCHITL LOVE MD Unavailable [...] Unavailable Unavailable Joesph HERNANDEZ MD Unavailable Unavailable oJesph HERNANDEZ MD Unavailable Unavailable Joesph HERNANDEZ MD [...] is protected by Article 27-F of the [facility] Public Health law. If you continue you may have access to information: Regarding HIV / AIDS; Provided by facilities licensed or operated by the [facility] Office of Mental Health; or Provided by the [facility] Office for People With Developmental Disabilities. If such information is present, then the following [facility] mandated warning applies: This information has been [...] law may result in a fine or senior living sentence or both. A general authorization for the release of medical or other information is NOT sufficient authorization for further disc losure. Allergies and Adverse Reactions Type Description Substance Reaction Status Data Source(s ) Propensity to adverse reactions NO KNOWN ALLERGIES NO KNOWN ALLERGIES [facility] Encounters Encounter Providers Location Date Indications Data Source(s ) Outpatient Attender: SCOTT HERNANDEZ MDReferrer: SCOTT LOVE MD [id number] 10/01/2020 12:00:00 AM EST [facility] Outpatient Referrer: SCOTT HERNANDEZ MD 10/01/2020 12:0 0:00 AM EST Displaced fracture of neck of fifth metacarpal bone, left hand, subsequent encounter for fracture with routine healing [facility] Displaced fracture of neck of fifth meta carpal bone, left hand, subsequent encounter for fracture with routine healing Outpatient Referrer: SCOTT HERNANDEZ MD 09/10/2020 12:0 0:00 AM EST Displaced fracture of neck of fifth metacarpal bone, left hand, initial encounter for closed fracture [facility] Displaced fracture of neck of fifth meta carpal bone, left hand, initial encounter for closed fracture Outpatient Attender: SCOTT HERNANDEZ MDReferrer: SCOTT LOVE MD [id number] 09/10/2020 12:00:00 AM [facility] Outpatient Attender: SCOTT HERNANDEZ MD 08/28/2020 12:00:00 A M [facility] Outpatient Attender: SCOTT HERNANDEZ MDReferrer: SCOTT LOVE MD [id number] 08/14/2020 12:00:00 AM EDT Displaced fracture of neck of fifth meta carpal bone, left hand, initial encounter for closed fracture [facility] Displaced fracture of neck of fifth meta carpal bone, left hand, initial encounter for closed fracture Outpatient Referrer: SCOTT HERNANDEZ MD 08/14/2020 12:0 0:00 AM EDT Unspecified injury of left wrist, hand and finger(s), initial encounter [facility] Unspecified injury of left wrist, hand a nd finger(s), initial encounter Medications No Information Insurance Providers Payer name Policy type / Coverage type Policy ID Covered green party ID Covered green party's relationship to dudley Policy [place] Plan Information U [id number] Self [id number] U [id number] Self [id number] ACTIVE DUTY [id number] Problems, Conditions, and Diagnoses Code Display Name Description Problem Type Effective Dates Data Source(s) S62.337D Displaced fracture of neck o f fifth metacarpal bone, left hand, subsequent encounter for fracture with routine healing Displaced fracture of neck of fifth metacarpal bone, left hand, subsequent encounter for fracture with routine healing Diagnosis 08/14/2020 09:47:48 AM EDT [facility] S62.337A Displaced fracture of neck o f fifth metacarpal bone, left hand, initial encounter for closed fracture Displaced fracture of neck of fifth meta carpal bone, left hand, initial encounter for closed fracture Diagnosis 08/14/2020 09:47:48 AM EDT [facility] S69.92XA Unspecified injury of left w rist, hand and finger(s), initial encounter Unspecified injury of left wrist, hand and finger(s), initial encounter Diagnosis 08/14/2020 09:15:25 AM EDT [facility] Surgeries/Procedures No Information Results ID Date Data Source [id number] 10/01/2020 09:40:26 AM EST [facility] Name Value Range Interpretation Code Description Data Arabella rce(s) Supporting Document(s) Progress Note [facility] TIDTEe2aAtTVPeUl48/HRXzgTBCtz2AgYIkmNKd1BWtaUCPiA2WmTUR7eM7gYGC8BRuCRzQaPeQiIgN5 lbm [file] AgICAgICAgICAgICAgICAgICAgICAgICAgICAgICAgICAgICAgICAgICAgICAgICAgICAgICAgDQogIC AgICAgICAgICAgICAgICAgICAgICAgICAgICAgICAg ICAgICAgICAgICAgICAgICAgICAgICAgICAgICAgICAgICAgICAgICAgICAgICAgICAgICAgICAgICAg ICAgICAgDQogICAgICAgICAgICAgICAgICAgICAgICAgICAgICAgICAgICAgICAgICAgICAgICAgICAg ICAgICAgICAgICAgICAgICAgICAgICAgICAgICAgIC AgICAgICAgICAgICAgICAgDQogICAgICAgICAgICAgICAgICAgICAgICAgICAgICAgICAgICAgICAgIC AgICAgICAgICAgICAgICAgICAgICAgICAgICAgICAgICAgICAgICAgICAgICAgICAgICAgICAgICAgDQ ogICAgICAgICAgICAgICAgICAgICAgICAgICAgICAg ICAgICAgICAgICAgICAgICAgICAgICAgICAgICAgICAgICAgICAgICAgICAgICAgICAgICAgICAgICAg ICAgICAgICAgDQogICAgICAgICAgICAgICAgICAgICAgICAgICAgICAgICAgICAgICAgICAgICAgICAg ICAgICAgICAgICAgICAgICAgICAgICAgICAgICAgIC AgICAgICAgICAgICAgICAgICAgDQogICAgICAgICAgICAgICAgICAgICAgICAgICAgICAgICAgICAgIC AgICAgICAgICAgICAgICAgICAgICAgICAgICAgICAgICAgICAgICAgICAgICAgICAgICAgICAgICAgIC AgDQogICAgICAgICAgICAgICAgICAgICAgICAgICAg ICAgICAgICAgICAgICAgICAgICAgICAgICAgICAgICAgICAgICAgICAgICAgICAgICAgICAgICAgICAg ICAgICAgICAgICAgDQogICAgICAgICAgICAgICAgICAgICAgICAgICAgICAgICAgICAgICAgICAgICAg ICAgICAgICAgICAgICAgICAgICAgICAgICAgICAgIC AgICAgICAgICAgICAgICAgICAgICAgDQogICAgICAgICAgICAgICAgICAgICAgICAgICAgICAgICAgIC AgICAgICAgICAgICAgICAgICAgICAgICAgICAgICAgICAgICAgICAgICAgICAgICAgICAgICAgICAgIC KnKNQwMIe9F2yqFNNmEAMdGR1iGQi3Oz3+DQoNCmVu HWX0eiHtxC7FIM6ov6RlABmnCCNza8WiZVz8MI5RQNPfYRcbQR6BKCydwi0AKBNdRDRxwEIQk2gbHvAg WHU8IMWlOcsbXK5SWBFhY0cmtsJkTMMnNYNTHD0HMtDhG3OwpQ04YCWGMx3+FXbrxdEcKqcXTnD3EKKq m1KfOEp0CN9SSQTpAxuic2LzTgVrUWQAFTutKK8FBL F9UELzWVKtLw2KOPVvE925cyGxWT3YTl0IIaZnSR3foi9YSdIuMFVmMakIYki4KVqbSJ9EcRDgQKdQsa 6riuBskyHBc0RzgnGczHNWovakppDIBAozhgvvtRddBOZeJNEjZSUsLf7jTXDnRGL7ZcAlNVASHA1XXC AxNQSzcALuXYVgUXVBCG2JGLfnOWE7CJFnmoNhsYXd IIvrZF4LWMJkniDfHIbfYRYKMOh+Vv4BNU5ni5QfXWybHZVdVL2bws2LJUsMZdXjT4S7dNUdG4V4HJai Vk9VHHSdSCFxNLrfGHZTEIliQY0ATY9lnmV5KE7SiUNmTCGuAKRonCZmQQq6O14drSKgLKboPX2BWMB+ Annie+Ry8RRPRvJYXmVORuVzMvQJBDWsYqQ0OyU9TQh5 CbN3BuGN88pVaesmPkFEeqUO6TSP5bUFJmZNGJQT2HlSQrhT0hddNkKABqKRYUItHuM36uxZMiQPJhLM F4MPEpJf8UGOPqZ7DtefDgzNbjtjFvLQAsJMJWFP8TUKcifjFlfMLoqKtzFO59lDwxQD2YJl3SPkMxGV 6dmh4QjUXjYu9WFYTkKv7BAORoZHRoKEVwRDL4GAGw WjLcVPmtVNAjHKNuQIE4OVEdGLGyOI7HCaPdUQDtQSqtRJSuPOUzMPNexb1URRMcNJZiRBxjXyDhMLVf FZOqDLgzVFTlGQGkJBQ1JWCtLVHtDV4RCmSrORLuAYJ9GRRvPZLuGAHvlo4NKCDbJMWhJyRiYUQiTKGa BZGbWBxwYFAiOTVrIXz6YLJlIBPpTX0RSmGyVIGuYC JmDwEcAFCgABZkrs1XEZJqPZAbWjD9KIRtWQAuIWMsEBulOZXwYYN6HMV3JODpVMDoWT9FEhPcSTDfSW L5MTDzKSSaTLWqzi5XNDKySBWuKKi8CyKyCLZaYEIzGPhxRQLmIWT9XBDhZVRrZSMjHU7QUoJxYOIdRF I2VnmkOQInCIAgai9JRDRjPEIhBpJ9OaBkVSWxOUVj PDvkVSYfIDC2ADY1JXMsUGKvYD1WJnKbKLScTTbwGuJtTEVpIEIupd6AGJPjQLWfXqQ0ChPhIIMcNUAz QUpuKGLzOHJ4XBRkGEWxZGLiYF5HNyKbXGGnHZu3RdVoDSXfXCJtfb4HDXOoZXKtUBXjYPDzIKMuVEPr OQb8ejBpfIDzHGd6GH7MZ4PhmqLjNkDMIp8Uf583GF XwBURxLo5SO7gnVr9mOAIeASKVMn0JGYq3Fao7EdIvXmHwUML8ISXhIVylXsIiTmFqOAXxRcfdAJG+ID jwGLC7RvOjWhHdAnz9GuLmZFX2LQUrVCDmJTDhVAJhCK1cQXTSSw8+VVjxgOZsxRpoUOJKQlL3DmY6AD waMWNHEp4E ID Date Data Source [id number] 10/01/2020 09:27:00 AM [facility] XR HAND 3 OR MORE VIEWS [id number] RESUL TInterpreted by:RIKKI Carringtonlinical history: Left fifth [...] rce(s) Supporting Document(s) ID Date Data Source [id number] 09/10/2020 11:56:41 AM [facility] XR HAND 3 OR MORE VIEWS [id number] RESUL TInterpreted by:RIKKI Carringtonlinical history: Left fifth [...] rce(s) Supporting Document(s) ID Date Data Source [id number] 09/10/2020 11:06:36 AM [facility] Name Value Range Interpretation Code Description Data Arabella rce(s) Supporting Document(s) Progress Note [facility] VRCVBr0zXiMDKcAe65/HQBteSHRin7QpBDxeEIv0CCwvSLOxR8FeAEB8eF9iWNQ8IAgZAfVoHoKbOWQ8 lbm [file] ICAgICAgICAgICAgICAgICAgICAgICAgICAgICAgICAgICAgICAgICAgICAgICAgICAgICAgICAgICAg ICAgICAgICAgICAgICAgICAgICANCiAgICAgICAgICAgICAgICAgICAgICAgICAgICAgICAgICAgICAg ICAgICAgICAgICAgICAgICAgICAgICAgICAgICAgIC AgICAgICAgICAgICAgICAgICAgICAgICAgICAgICANCiAgICAgICAgICAgICAgICAgICAgICAgICAgIC AgICAgICAgICAgICAgICAgICAgICAgICAgICAgICAgICAgICAgICAgICAgICAgICAgICAgICAgICAgIC AgICAgICAgICAgICANCiAgICAgICAgICAgICAgICAg ICAgICAgICAgICAgICAgICAgICAgICAgICAgICAgICAgICAgICAgICAgICAgICAgICAgICAgICAgICAg ICAgICAgICAgICAgICAgICAgICAgICANCiAgICAgICAgICAgICAgICAgICAgICAgICAgICAgICAgICAg ICAgICAgICAgICAgICAgICAgICAgICAgICAgICAgIC AgICAgICAgICAgICAgICAgICAgICAgICAgICAgICAgICANCiAgICAgICAgICAgICAgICAgICAgICAgIC AgICAgICAgICAgICAgICAgICAgICAgICAgICAgICAgICAgICAgICAgICAgICAgICAgICAgICAgICAgIC AgICAgICAgICAgICAgICANCiAgICAgICAgICAgICAg ICAgICAgICAgICAgICAgICAgICAgICAgICAgICAgICAgICAgICAgICAgICAgICAgICAgICAgICAgICAg ICAgICAgICAgICAgICAgICAgICAgICAgICANCiAgICAgICAgICAgICAgICAgICAgICAgICAgICAgICAg ICAgICAgICAgICAgICAgICAgICAgICAgICAgICAgIC AgICAgICAgICAgICAgICAgICAgICAgICAgICAgICAgICAgICANCiAgICAgICAgICAgICAgICAgICAgIC AgICAgICAgICAgICAgICAgICAgICAgICAgICAgICAgICAgICAgICAgICAgICAgICAgICAgICAgICAgIC AgICAgICAgICAgICAgICAgICANCiAgICAgICAgICAg ICAgICAgICAgICAgICAgICAgICAgICAgICAgICAgICAgICAgICAgICAgICAgICAgICAgICAgICAgICAg ICAgICAgICAgICAgICAgICAgICAgICAgICAgICANCjw/aRRfV7moyULwesV8W5noGa2LEh5REX3ff4Vs ZKPvJKchyoDeSgvISmZkIEQxIiyMIxl7WLpoDH6HmJ DhD6IeC0SqQIfoZH2EILMaKNOyeEWiXBCnPJRpGjE6RRWoYMhpJZ4IoRXyAXjmCYUbGNWoOB5ISOUiD3 80foEkQX1GUm8LUkClVX2hds2EZJnkKBQlLamYDpw7SHghHQ3YeEKzpYVjTFIeYCNFXaYrG9dfp8IqPu QlGMDMPVpuPB9Kd5NbcSWnVZq+Gg4UWO2iq6UcWDdi VRYxBL5edq5WTJuRHyFfW1VjvSqbPMAsh3ssUHCdZX7hiADjLJR3FAZrcVVmZPmkLDXnpLX6GFRDMUGz jXFeYP6zAb7oFMKfSRGpZgFbDHSPTQ7TYCTvFISctHXhOBMwNUGQZP0DFJibYFO3TQPwdhEetWXcLBre RE8EGHXvfrDwRLmtYCKVVCy+Rp9LOF9vr8BnSYphUW LfRQ4hjo9QMUiZJgLnD5Q4dHYlT1V2SRpsIx6PSXIvILXlKUleDIOOLKbsHQ8VAQ5xceC2VM2XeNOuTV UxLMVnaXRuWBx2N82sjHVlIAfrXQ1QSDO+Annie+Lq0GDEOtDCWqVZJwLuBwDCPWVgBiZ8PpZ4UDv2PhM9 WmER58jWejfdOyFXhcJG9LFJ1kSERgWJCJLJ4LwZLl vN4whxEuUPJzZGMVKsZoH76zyNMiBQWeGHZ7QWOdXr9GOTIdC2ObsqPieXocblPaPFWuYTUKPN6TZBni jnOrpQXauPvdID03wBejAF1WLn2MSvYiZF7eyu2CuKUeTy7IIEOmHg7ONLNjBKPlYIHzPEZ0ZZXsSwZa GWvmITYzLCYyHXY5EWDqEPHeDV1LKfTtWBUlQGjvPV MnFHLfHKOywb1CWHJxMBZnRJsgDYFyZKDqJBCjFYyrPREyIQVyXSR0YWUpMLErCM1KNzWpGLFeDGWoXk lqRZOmQGCduy5WVXWvEELhAdNjICCdZLNbVKOdLHkhQKWtJWGjUDwvVVCzQXAgUE2CKdBqPLRhCIDfVM EzFKVuMSWlhj4JBYTmCAFnAiH9CzTxEDIyPXSzEHnd LESpEIO9NDM7HYRiJTKdQJ8HYsDfCEPbGKD3CxPyQVOfJHAajf3BKLGmPODqTXokYdMkATLqGSToYUuh PILzLBW7ElP9ZANjAAFdDG4HUeXdZOSxLWQ9XXKwPFPcHTZkwq3MYIEfEZGeHtz2ZaWeMEPtHCOlCTvm FNKuPOE9IOXwKNJfGMGgWQ6IOpZyVMWmPWclJnzySB MtPTWdeb9CSOGsVQQfFqR0BGZzVUNaRNEsLXwcBGTeXPM0PXZ6VYNtSJHtMC3BPaJtCVVlNGzfUGwrSS NnOWWzdw9CAYNgTGZdZIThQGXrDUEsMFNdOQb0cgYiiGYxSZq4GT6WL6ObdcVdAgCPJa6Ew782JPReQL ZeQb5PX3rwIg4uWKMiKMNBGv0QOSc5ZDBzSQCcAjw3 RUH7SPQpZnUyFOT1VFVzFiZ0HCV3HKH+EWl6W0FvXUPlNVy1NQL8GrDaJvN5RXZiXND7QZVlANNbXm7e XSANCj4+XOpxgVQpwFqaAHQVWqZ8TQpaCRfaTNRHMq8T ID Date Data Source [id number] 08/14/2020 09:51:35 AM EDT [facility] XR HAND 3 OR MORE VIEWS [id number] RESUL TInterpreted by:RIKKI Carringtonlinical history: Left fifth [...] rce(s) Supporting Document(s) ID Date Data Source [id number] 08/14/2020 09:48:26 AM EDT [facility] Name Value Range Interpretation Code Description Data Arabella rce(s) Supporting Document(s) Progress Note [facility] TZFCBk5uPrSIPjRw50/FXTltTWFpk6PxFYjgESy7ENxkHIFwF5AuIUJ3eA7rEAT7IOcTZfXoEoMxRRIc m [file] H9VeLuNNbcImjjRMVqOFQ2RFNqTfVnOhGwSS9GTg7ZWoW9JNM0cHPlDl3MLcMxXyUOXsSpFY3JKRj= Procedure Social History Code Duration Value Status Description Data Source(s ) Alcohol intake 10/01/2020 12:00:00 AM EST Current drinker of al cohol (finding) completed Current drinker of alcohol (finding) [facility] Tobacco use and exposure 10/01/2020 12:00:00 AM EST Never used co mpleted Never used [facility] Smoking 10/01/2020 12:00:00 AM EST Current every day smoker co mpleted Current every day smoker [facility] Alcohol intake 09/10/2020 12:00:00 AM EST Current drinker of al cohol (finding) completed Current drinker of alcohol (finding) [facility] Alcohol intake 08/14/2020 12:00:00 AM EDT Current drinker of al cohol (finding) completed Current drinker of alcohol (finding) [facility] Vital Signs ID Date Data Source [id number] 08/20/2020 02:31:15 PM EDT [facility] Name Value Range Interpretation Code Description Data Source(s) WEIGHT RECORDED [address] [facility] Body height Measured 75 in 75 in [facility]
[2021-09-04] MEDS ORDERED: NS 1,000 ML IV ONE (14:45)
[2021-09-04 15:12] LABS: BASO # 0.1 10^3/uL (0.0-0.2); BASO % 0.9 % (0.0-1.0); EOS # 0.3 10^3/uL (0.0-0.5); EOS % 4.7 % (0.0-3.0); HEMATOCRIT 41.5 % (42.0-52.0); HEMOGLOBIN 14.3 g/dl (13.5-17.5); LYMPH # 2.5 10^3/uL (1.5-5.0); MEAN CORPUSCULAR HEMOGLOBIN 34.9 pg (27.0-33.0); MEAN CORPUSCULAR HGB CONC 34.5 g/dl (32.0-36.5); MEAN CORPUSCULAR VOLUME 101.2 fl (80.0-96.0); MONO # 0.4 10^3/uL (0.0-0.8); MONO % 6.1 % (2.0-8.0); NEUTROPHILS # 3.3 10^3/uL (1.5-8.5); NEUTROPHILS % 50.1 % (36.0-66.0); PLATELET COUNT, AUTOMATED 192 10^3/uL (150-450); WHITE BLOOD COUNT 6.6 10^3/uL (4.0-10.0)
[2021-09-04 15:35] LABS: ALBUMIN 4.4 GM/DL (3.2-5.2); BILIRUBIN,DIRECT 0.1 MG/DL (0.0-0.2); BILIRUBIN,TOTAL 0.2 MG/DL (0.2-1.0); TOTAL PROTEIN 7.1 GM/DL (6.4-8.2)
[2021-09-04] MEDS ORDERED: LIDOCAINE 5% (LIDODERM) PATCH TD ONE (15:35)
[2021-09-04] MEDS ORDERED: KETOROLAC 30 MG/ML 1ML VIAL IV ONE (15:35)
--- NOTE | 2021-09-04 16:18 | REP ---
INDICATION: Abdominal Pain. COMPARISON: None. TECHNIQUE: Three views FINDINGS: Supine and upright views of the abdomen show the intestinal gas pattern to be nonspecific. Gas and stool is seen throughout the colon within the rectosigmoid region. The organ silhouettes insofar as delineated appear unremarkable. No abdominal calcific densities are seen within the abdomen or pelvis. The accompanying single frontal view of the chest shows no free subdiaphragmatic air, cardiomegaly, infiltrates or effusions. IMPRESSION: Nonspecific intestinal gas pattern. <Electronically signed by Lucas [address] > 09/04/21 2115
[2021-09-04] MEDS ORDERED: CYCL5TAB PO ×2 (16:51→17:06)
[2021-09-04] MEDS ORDERED: LIDO5DIS41 TOP ×2 (16:51→17:06)
[2021-09-04] MEDS ORDERED: **NOTE PATIENT COMMENT** MISC XX SCH (21:00)
== END 2021-09-04 17:15 | disposition home or self-care (01) ==
LOC: M ED 10:49
DX: M62.830 Muscle spasm of back (principal); F17.210 Nicotine dependence, cigarettes, uncomplicated
CPT/HCPCS: 74021; 80047; 80076; 81001; 83690; 85025; 96361; 96374; 99283; J1885

== ENCOUNTER 2021-10-28 14:38 | Emergency (ER) | payer OTHER ==
[~2021-10-28] VITALS: Ht 190.5 cm; Wt 86.0 kg
[~2021-10-28 14:38] MED LIST: CYCL5TAB PO; LIDO5DIS41 TOP
[2021-10-28 14:39] VITALS: BP 132/65
[2021-10-28] MEDS ORDERED: ONDANSETRON 4 MG ORAL DISINTEGRATING TAB PO ONE (18:15)
[2021-10-28] MEDS ORDERED: ACETAMINOPHEN 500 MG TAB PO ONE (18:15)
[2021-10-28] MEDS ORDERED: ONDA4TAB6 PO (18:49)
== END 2021-10-28 19:24 | disposition home or self-care (01) ==
LOC: M ED 14:38
DX: U07.1 COVID-19 (principal); F17.200 Nicotine dependence, unspecified, uncomplicated
CPT/HCPCS: 99282; Q0162

== ENCOUNTER 2024-09-29 11:01 | Emergency (ER) | payer OTHER ==
[~2024-09-29] VITALS: Ht 190.5 cm; Wt 73.3 kg
[~2024-09-29 11:01] MED LIST changes: -CYCL5TAB PO; +CYCL5TAB4 PO; +ONDA-282 PO
[2024-09-29 14:44] LABS: BASO % 0.5 % (0.0-1.0); EOS # 0.2 10^3/uL (0.0-0.5); EOS % 3.4 % (0.0-3.0); HEMATOCRIT 42.6 % (42.0-52.0); HEMOGLOBIN 15.2 g/dl (13.5-17.5); LYMPH # 1.5 10^3/uL (1.5-5.0); LYMPH % 24.7 % (24.0-44.0); MEAN CORPUSCULAR HEMOGLOBIN 36.7 pg (27.0-33.0); MEAN CORPUSCULAR HGB CONC 35.7 g/dl (32.0-36.5); MEAN CORPUSCULAR VOLUME 102.9 fl (80.0-96.0); MONO # 0.6 10^3/uL (0.0-0.8); MONO % 9.2 % (2.0-8.0); NEUTROPHILS # 3.8 10^3/uL (1.5-8.5); NEUTROPHILS % 61.9 % (36.0-66.0); PLATELET COUNT, AUTOMATED 211 10^3/uL (150-450); RED BLOOD COUNT 4.14 10^6/uL (4.30-6.10); WHITE BLOOD COUNT 6.1 10^3/uL (4.0-10.0)
[2024-09-29] MEDS: FAMOTIDINE 20MG/2ML VIAL IVP ONE (14:44)
[2024-09-29] MEDS: diphenhydrAMINE 50MG/ML VIAL IV ONE (14:44)
[2024-09-29] MEDS: methylPREDNISolone 125MG 2ML VIAL IV ONE (14:44)
[2024-09-29 14:54] LABS: ERYTHROCYTE SEDIMENTATION RATE 3 mm/hr (0-15)
[2024-09-29 15:08] LABS: BLOOD UREA NITROGEN 6 MG/DL (9-23); C REACTIVE PROTEIN QUANTITATIV < 0.50 MG/DL (<1.0); CALCIUM LEVEL 10.3 MG/DL (8.5-10.1); CARBON DIOXIDE LEVEL 25 MMOL/L (20-31); CHLORIDE LEVEL 100 MMOL/L (98-107); CREATININE FOR GFR 0.79 MG/DL (0.70-1.30); GLOMERULAR FILTRATION RATE > 60.0 (>60); GLUCOSE, FASTING 84 MG/DL (60-100); POTASSIUM SERUM 3.8 MMOL/L (3.5-5.1); SODIUM LEVEL 136 MMOL/L (136-145)
[2024-09-29 15:09] LABS: COMPLEMENT C4 29.4 MG/DL (12-36)
[2024-09-29 15:48] VITALS: O2SAT 99
[2024-09-29] MEDS ORDERED: NYST100085 TOP (15:48)
[2024-09-29] MEDS ORDERED: PRED20TA PO (15:48)
[2024-09-29] MEDS ORDERED: CETI10CH PO (15:48)
[2024-09-29 16:15] VITALS: BP 123/56; TEMP 98.7
== END 2024-09-29 16:21 | disposition home or self-care (01) ==
LOC: M ED 11:01
DX: L25.8 Unspecified contact dermatitis due to other agents (principal); B37.9 Candidiasis, unspecified; F17.210 Nicotine dependence, cigarettes, uncomplicated; F10.10 Alcohol abuse, uncomplicated; Z79.52 Long term (current) use of systemic steroids; Z79.899 Other long term (current) drug therapy
CPT/HCPCS: 71045; 80048; 85025; 85652; 86140; 86160; 93041; 94760; 96374; 99285; J1200; J2919

== ENCOUNTER 2025-07-26 11:41 | Emergency (ER) | payer OTHER ==
[~2025-07-26] VITALS: Ht 190.5 cm; Wt 74.1 kg
[~2025-07-26 11:41] MED LIST changes: +CETI10CH PO; +LIDO1ADH93 TOP; -LIDO5DIS41 TOP; +NYST100085 TOP; +PRED20TA PO
[2025-07-26] MEDS ORDERED: HYDR-3363 (11:47)
[2025-07-26 12:47] LABS: BASO # 0.0 10^3/uL (0.0-0.2); BASO % 0.5 % (0.0-1.0); EOS # 0.1 10^3/uL (0.0-0.5); EOS % 0.9 % (0.0-3.0); KETONE, URINE AUTO RFX 1+ mg/dL (NEGATIVE); LEUKOCYTE ESTERASE UR AUTO RFX NEGATIVE (NEGATIVE); LYMPH # 1.1 10^3/uL (1.5-5.0); LYMPH % 17.9 % (24.0-44.0); MONO # 0.4 10^3/uL (0.0-0.8); MONO % 7.0 % (2.0-8.0); MUCUS, URINE RFX SMALL (NEGATIVE); NEUTROPHILS # 4.6 10^3/uL (1.5-8.5); NEUTROPHILS % 73.2 % (36.0-66.0); NITRITE, URINE AUTO RFX NEGATIVE (NEGATIVE); PLATELET COUNT, AUTOMATED 127 10^3/uL (150-450); RBC, URINE AUTO RFX 0 /HPF (0-3); SQUAM EPITHELIAL CELL UR AURFX 0 /HPF (0-6); WBC, URINE AUTO RFX 0 /HPF (0-3)
[2025-07-26 13:22] LABS: ALT/SGPT 46 U/L (7.0-40); AST/SGOT 72 U/L (<34); CALCIUM LEVEL 9.8 MG/DL (8.5-10.1); CARBON DIOXIDE LEVEL 26 MMOL/L (20-31); CHLORIDE LEVEL 96 MMOL/L (98-107); CREATININE FOR GFR 0.78 MG/DL (0.70-1.30); GLOMERULAR FILTRATION RATE > 90.0 (>60); POTASSIUM SERUM 2.9 MMOL/L (3.5-5.1); SODIUM LEVEL 133 MMOL/L (136-145)
[2025-07-26] MEDS ORDERED: ISOVUE-370 76% 100 ML VIAL As Ordered ONE (13:40)
[2025-07-26] MEDS: POTASSIUM CHLORIDE 10MEQ SR TABLET PO ONE (13:46)
[2025-07-26 15:15] VITALS: BP 138/83; TEMP 99.5; O2SAT 99
== END 2025-07-26 15:24 | disposition home or self-care (01) ==
LOC: M ED 11:41
DX: K85.20 Alcohol induced acute pancreatitis without necrosis or infection (principal); K76.0 Fatty (change of) liver, not elsewhere classified; F17.210 Nicotine dependence, cigarettes, uncomplicated; F10.10 Alcohol abuse, uncomplicated; Z79.899 Other long term (current) drug therapy
CPT/HCPCS: 36415; 74021; 74177; 80048; 80076; 81001; 83690; 85025; 99284; Q9967